=== PATIENT | male | born 1950 | race Caucasian/White ===

== ENCOUNTER 2018-08-01 13:51 | Inpatient (IN) ==
[2018-08-01 14:43] LABS: Alanine Aminotransferase 10 U/L (16-61); Albumin 3.7 G/DL (3.4-5.0); Alkaline Phosphatase 68 U/L (45-117); Aspartate Amino Transferase 36 U/L (0-37); Bilirubin,Total < 0.39 MG/DL (0.2-1.0); Blood Urea Nitrogen 35 MG/DL (7-18); Calcium 8.7 MG/DL (8.5-10.1); Glucose 121 MG/DL (74-106); Osmolality,Calculated 281.8 MOS/KG (273-304); Sodium 137 MMOL/L (136-145); Total Protein 7.5 G/DL (6.4-8.3)
[2018-08-01 14:49] LABS: Potassium 6.1 MMOL/L (3.5-5.1)
[2018-08-01 15:14] LABS: Basophils % 0.2 % (0.0-0.8); Eosinophils # 0.3 10*3/uL (0.0-0.87); Eosinophils % 2.7 % (0.00-10.9); Hematocrit 43.8 VOL% (42.0-52.0); Hemoglobin 13.5 GM/DL (14.0-18.0); Immature Granulocytes Absolute 0.71 #; Lymphocytes # 2.5 10*3/uL (1.4-4.0); Lymphocytes % 24.3 % (21.2-54.2); Mean Corpuscular HGB Conc 30.8 GM/DL (32-36); Mean Corpuscular Hemoglobin 28 PG (27-34); Mean Corpuscular Volume 89.4 FL (87-102); Mean Platelet Volume 9.2 FL (9.6-12.0); Monocytes # 0.7 10*3/uL (0.11-0.8); Neutrophils # 5.9 10*3/uL (1.4-7.4); Neutrophils % 58.8 % (38.7-73.9); Platelet Count 278 T/CUMM (130-400); Red Cell Distribution Width 14.6 % (9.3-17.3); White Blood Count 10.1 T/CUMM (4-12)
[2018-08-01] MEDS ORDERED: ALBUTEROL 2.5 MG/3 ML NEB RESP TX STA (15:28)
[2018-08-01 15:42] LABS: Band Neutrophils 1 % (0-10); Eosinophils 1 % (0-10); Lymphocytes 24 % (20-55); Segmented Neutrophils 61 % (50-85); Total Cells Counted 100
[2018-08-01 15:43] LABS: Platelet Estimate Adequate
[2018-08-01] MEDS ORDERED: DEXTROSE 50% 25 GM/50 ML VIAL IV STA (16:25)
[2018-08-01] MEDS ORDERED: INSULIN REGULAR 100 UNIT/ML IV STA (16:26)
[2018-08-01] MEDS ORDERED: DEXTROSE 50% 25 GM/50 ML SYRINGE IV ONE (17:02)
[2018-08-01] MEDS ORDERED: ONDANSETRON 4 MG/2 ML VIAL IV PRN (18:05)
[2018-08-01] MEDS ORDERED: ACETAMINOPHEN 325 MG TABLET PO PRN (18:05)
[2018-08-01] MEDS ORDERED: SODIUM POLYSTYRENE SULFATE 15 GM/60 ML BOTTLE PO STA (18:09)
[2018-08-01] MEDS ORDERED: SODIUM CHLORIDE 0.9% 1,000 ML IV SCH (18:30)
[2018-08-02 00:21] LABS: Apearance,Urine CLEAR (Clear); Bilirubin,Urine Negative (Negative); Blood, Urine Negative (Negative); Glucose,Urine (UA) Negative (Negative); Hyaline Casts,Urine 11 /LPF (0-3); Ketones,Urine 5 mg/dL (Negative); Mucus,Urine Occasional /LPF (Occasional); Nitrite,Urine Negative (Negative); Protein,Urine Negative; RBC,Urine 1 /HPF (0-4); Squamous Epithelial Cell,Urine Occasional /HPF (0-10); Urine Color Yellow (Yellow); Urine Specific Gravity 1.019 (1.001-1.035); WBC,Urine 2 /HPF (0-6)
[2018-08-02 00:22] LABS: Barbiturates Screen,Urine Negative (Negative); Benzodiazepines Screen,Urine Negative (Negative); Cannabinoid Screen,Urine Negative (Negative); Opiate Screen,Urine Negative (Negative); Phencyclidine Screen,Urine Negative (Negative)
[2018-08-02 05:45] LABS: Basophils # 0.1 10*3/uL (0.0-0.2); Basophils % 1.7 % (0.0-0.8); Eosinophils # 0.2 10*3/uL (0.0-0.87); Eosinophils % 2.8 % (0.00-10.9); Hematocrit 39.9 VOL% (42.0-52.0); Immature Granulocytes % 5.8 %; Immature Granulocytes Absolute 0.45 #; Lymphocytes # 2.1 10*3/uL (1.4-4.0); Lymphocytes % 26.3 % (21.2-54.2); Mean Corpuscular HGB Conc 30.1 GM/DL (32-36); Mean Corpuscular Hemoglobin 27 PG (27-34); Mean Corpuscular Volume 91.1 FL (87-102); Mean Platelet Volume 8.9 FL (9.6-12.0); Monocytes # 0.7 10*3/uL (0.11-0.8); Monocytes % 9.5 % (1.7-12.7); Neutrophils # 4.2 10*3/uL (1.4-7.4); Neutrophils % 53.9 % (38.7-73.9); Platelet Count 228 T/CUMM (130-400); Red Blood Count 4.38 MC/CUMM (3.8-5.5); Red Cell Distribution Width 14.6 % (9.3-17.3); White Blood Count 7.8 T/CUMM (4-12)
[2018-08-02 06:04] LABS: Calcium 8.3 MG/DL (8.5-10.1); Osmolality,Calculated 287.4 MOS/KG (273-304); Potassium 4.4 MMOL/L (3.5-5.1)
[2018-08-02 06:11] LABS: Eosinophils 4 % (0-10); Hypochromasia 1+; Lymphocytes 31 % (20-55); Platelet Estimate Adequate; Segmented Neutrophils 56 % (50-85); Total Cells Counted 100
[2018-08-02] MEDS: PANTOPRAZOLE 40 MG TABLET PO SCH (09:26)
[2018-08-03 02:53] LABS: Basophils # 0.2 10*3/uL (0.0-0.2); Basophils % 1.9 % (0.0-0.8); Eosinophils # 0.2 10*3/uL (0.0-0.87); Eosinophils % 1.6 % (0.00-10.9); Hematocrit 43.7 VOL% (42.0-52.0); Hemoglobin 13.7 GM/DL (14.0-18.0); Immature Granulocytes % 4.3 %; Immature Granulocytes Absolute 0.46 #; Lymphocytes # 3.2 10*3/uL (1.4-4.0); Mean Corpuscular HGB Conc 31.4 GM/DL (32-36); Mean Corpuscular Hemoglobin 27 PG (27-34); Mean Corpuscular Volume 87.4 FL (87-102); Monocytes # 1.1 10*3/uL (0.11-0.8); Monocytes % 10.2 % (1.7-12.7); Neutrophils # 5.6 10*3/uL (1.4-7.4); Platelet Count 285 T/CUMM (130-400); Red Cell Distribution Width 14.2 % (9.3-17.3); White Blood Count 10.8 T/CUMM (4-12)
[2018-08-03 03:26] LABS: Osmolality,Calculated 284.4 MOS/KG (273-304); Potassium 4.6 MMOL/L (3.5-5.1)
[2018-08-03] MEDS: PANTOPRAZOLE 40 MG TABLET PO SCH (09:08)
[2018-08-03] MEDS ORDERED: MEMANTINE 10 MG TABLET PO SCH (10:00)
[2018-08-03] MEDS ORDERED: METOPROLOL TARTRATE 50 MG TABLET PO SCH (10:00)
[2018-08-03] MEDS ORDERED: LITHIUM 300 MG CAPSULE PO SCH (11:00)
[2018-08-03 12:44] VITALS: BP 125/79
[2018-08-03] MEDS ORDERED: CARBIDOPA/LEVODOPA 25-100 MG TABLET PO SCH (13:00)
[2018-08-03] MEDS ORDERED: busPIRone 15 MG TABLET PO SCH (15:00)
[2018-08-03] MEDS ORDERED: DIVALPROEX 500 MG TABLET PO SCH (17:00)
[2018-08-03] MEDS ORDERED: DONEPEZIL 10 MG TABLET PO SCH (21:00)
[2018-08-03] MEDS ORDERED: traZODone 50 MG TABLET PO SCH (21:00)
[2018-08-03] MEDS ORDERED: DIVALPROEX 250 MG TABLET PO SCH (21:00)
== END 2018-08-03 16:15 | DRG 683 ==
LOC: EDSEX → EDBD → EDUNIT# → N.ED 13:51 → SUATTDRO 17:52 → N.EDINP 17:52 → N.5E 19:40
PROVIDERS: ADMIT Internal Medicine; ATTEND Internal Medicine

== ENCOUNTER 2018-09-29 10:57 | Inpatient (IN) ==
[2018-09-29] MEDS ORDERED: SODIUM CHLORIDE 0.9% 1,000 ML IV STA (11:05)
[2018-09-29 11:33] LABS: Basophils # 0.1 10*3/uL (0.0-0.2); Basophils % 0.8 % (0.0-0.8); Eosinophils # 0.1 10*3/uL (0.0-0.87); Eosinophils % 0.7 % (0.00-10.9); Hematocrit 40.8 VOL% (42.0-52.0); Hemoglobin 12.4 GM/DL (14.0-18.0); Immature Granulocytes % 4.4 %; Immature Granulocytes Absolute 0.62 #; Lymphocytes # 1.5 10*3/uL (1.4-4.0); Mean Corpuscular HGB Conc 30.4 GM/DL (32-36); Mean Corpuscular Hemoglobin 28 PG (27-34); Mean Corpuscular Volume 91.1 FL (87-102); Mean Platelet Volume 9.1 FL (9.6-12.0); Monocytes # 1.2 10*3/uL (0.11-0.8); Monocytes % 8.8 % (1.7-12.7); Neutrophils # 10.4 10*3/uL (1.4-7.4); Neutrophils % 74.3 % (38.7-73.9); Platelet Count 249 T/CUMM (130-400); Red Blood Count 4.48 MC/CUMM (3.8-5.5); Red Cell Distribution Width 13.4 % (9.3-17.3)
[2018-09-29 11:42] LABS: INR 0.9; PT Patient Result 9.9 SECS; Partial Thromboplastin Time 22.9 SECS (0-40)
[2018-09-29 11:58] LABS: Band Neutrophils 4 % (0-10); Lymphocytes 10 % (20-55); Platelet Estimate Adequate; Segmented Neutrophils 79 % (50-85); Total Cells Counted 100
[2018-09-29 11:59] LABS: Hypochromasia 1+
[2018-09-29 12:05] LABS: Alanine Aminotransferase 9 U/L (16-61); Albumin 3.5 G/DL (3.4-5.0); Alkaline Phosphatase 64 U/L (45-117); Aspartate Amino Transferase 36 U/L (0-37); Bilirubin,Total < 0.39 MG/DL (0.2-1.0); Blood Urea Nitrogen 37 MG/DL (7-18); Calcium 8.6 MG/DL (8.5-10.1); Glucose 68 MG/DL (74-106); Osmolality,Calculated 281.7 MOS/KG (273-304); Potassium 5.2 MMOL/L (3.5-5.1); Sodium 138 MMOL/L (136-145); Total Protein 7.7 G/DL (6.4-8.3)
[2018-09-29 12:44] LABS: Apearance,Urine CLEAR (Clear); Bilirubin,Urine Negative (Negative); Blood, Urine Negative (Negative); Glucose,Urine (UA) Negative (Negative); Hyaline Casts,Urine 1 /LPF (0-3); Ketones,Urine 5 mg/dL (Negative); Mucus,Urine Occasional /LPF (Occasional); Nitrite,Urine Negative (Negative); Protein,Urine Negative; RBC,Urine <1 /HPF (0-4); Urine Color Yellow (Yellow); Urine Specific Gravity 1.015 (1.001-1.035); Urine Urobilinogen < 2.0 EU/DL (0.2-1.0); WBC,Urine 1 /HPF (0-6)
[2018-09-29 12:53] LABS: Barbiturates Screen,Urine Negative (Negative); Benzodiazepines Screen,Urine Negative (Negative); Cannabinoid Screen,Urine Negative (Negative); Opiate Screen,Urine Negative (Negative); Phencyclidine Screen,Urine Negative (Negative)
[2018-09-29] MEDS ORDERED: ONDANSETRON 4 MG/2 ML VIAL IV PRN (13:43)
[2018-09-29] MEDS: cefTRIAXone 1,000 MG in SYRINGE 1 EACH IV SCH (18:02)
[2018-09-29] MEDS: DIVALPROEX 500 MG TABLET PO SCH (18:02)
[2018-09-29] MEDS: SODIUM CHLORIDE 0.9% 1,000 ML IV SCH (18:06)
[2018-09-29] MEDS: DONEPEZIL 10 MG TABLET PO SCH (20:21)
[2018-09-29] MEDS: busPIRone 15 MG TABLET PO SCH (20:21)
[2018-09-29] MEDS: CARBIDOPA/LEVODOPA 25-100 MG TABLET PO SCH (20:22)
[2018-09-29] MEDS: rOPINIRole 0.25 MG TABLET PO SCH (20:22)
[2018-09-29] MEDS: MEMANTINE 10 MG TABLET PO SCH (20:22)
[2018-09-29] MEDS: DIVALPROEX 250 MG TABLET PO SCH (20:22)
[2018-09-29] MEDS: SIMVASTATIN 20 MG TABLET PO SCH (20:22)
[2018-09-30 06:03] LABS: Alanine Aminotransferase 11 U/L (16-61); Albumin 2.9 G/DL (3.4-5.0); Alkaline Phosphatase 66 U/L (45-117); Aspartate Amino Transferase 30 U/L (0-37); Bilirubin,Direct < 0.100 MG/DL (0.0-0.20); Bilirubin,Indirect 0.3 MG/DL (0.0-1.0); Bilirubin,Total < 0.39 MG/DL (0.2-1.0)
[2018-09-30 07:12] LABS: Calcium 8.5 MG/DL (8.5-10.1); Osmolality,Calculated 276.7 MOS/KG (273-304); Potassium 4.5 MMOL/L (3.5-5.1)
[2018-09-30 07:41] LABS: Basophils # 0.1 10*3/uL (0.0-0.2); Basophils % 0.9 % (0.0-0.8); Eosinophils # 0.1 10*3/uL (0.0-0.87); Eosinophils % 0.7 % (0.00-10.9); Hematocrit 38.8 VOL% (42.0-52.0); Hemoglobin 11.8 GM/DL (14.0-18.0); Immature Granulocytes % 4.1 %; Immature Granulocytes Absolute 0.56 #; Lymphocytes # 1.7 10*3/uL (1.4-4.0); Lymphocytes % 12.2 % (21.2-54.2); Mean Corpuscular HGB Conc 30.4 GM/DL (32-36); Mean Corpuscular Hemoglobin 28 PG (27-34); Mean Corpuscular Volume 91.3 FL (87-102); Mean Platelet Volume 9.1 FL (9.6-12.0); Monocytes # 1.4 10*3/uL (0.11-0.8); Monocytes % 10.1 % (1.7-12.7); Neutrophils # 9.9 10*3/uL (1.4-7.4); Platelet Count 261 T/CUMM (130-400); Red Blood Count 4.25 MC/CUMM (3.8-5.5); Red Cell Distribution Width 13.3 % (9.3-17.3); White Blood Count 13.7 T/CUMM (4-12)
[2018-09-30 08:05] LABS: Anisocytosis 1+; Band Neutrophils 7 % (0-10); Eosinophils 1 % (0-10); Lymphocytes 11 % (20-55); Platelet Estimate Normal; Segmented Neutrophils 67 % (50-85); Total Cells Counted 100
[2018-09-30] MEDS: MEMANTINE 10 MG TABLET PO SCH ×2 (10:11→20:25)
[2018-09-30] MEDS: busPIRone 15 MG TABLET PO SCH ×3 (10:11→20:24)
[2018-09-30] MEDS: VENLAFAXINE XR 75 MG CAPSULE PO SCH (10:11)
[2018-09-30] MEDS: PANTOPRAZOLE 40 MG TABLET PO SCH (10:11)
[2018-09-30] MEDS: CHOLECALCIFEROL 1,000 UNIT TABLET PO SCH (10:11)
[2018-09-30] MEDS: rOPINIRole 0.25 MG TABLET PO SCH ×3 (10:11→20:25)
[2018-09-30] MEDS: SIMVASTATIN 20 MG TABLET PO SCH ×2 (10:11→20:25)
[2018-09-30] MEDS: SERTRALINE 50 MG TABLET PO SCH (10:11)
[2018-09-30] MEDS: CARBIDOPA/LEVODOPA 25-100 MG TABLET PO SCH ×4 (10:12→20:25)
[2018-09-30] MEDS: SODIUM CHLORIDE 0.9% 1,000 ML IV SCH (10:12)
[2018-09-30] MEDS: DIVALPROEX 500 MG TABLET PO SCH ×2 (10:12→16:51)
[2018-09-30] MEDS: cefTRIAXone 1,000 MG in SYRINGE 1 EACH IV SCH (17:30)
[2018-09-30] MEDS: DIVALPROEX 250 MG TABLET PO SCH (20:24)
[2018-09-30] MEDS: DONEPEZIL 10 MG TABLET PO SCH (20:24)
[2018-09-30] MEDS ORDERED: LITHIUM 150 MG CAPSULE PO SCH (21:00)
[2018-09-30] MEDS ORDERED: traZODone 50 MG TABLET PO SCH (22:11)
[2018-10-01] MEDS: SODIUM CHLORIDE 0.9% 1,000 ML IV SCH (04:16)
[2018-10-01] MEDS: DIVALPROEX 500 MG TABLET PO SCH (09:05)
[2018-10-01] MEDS: CARBIDOPA/LEVODOPA 25-100 MG TABLET PO SCH ×2 (09:05→13:50)
[2018-10-01] MEDS: VENLAFAXINE XR 75 MG CAPSULE PO SCH (09:05)
[2018-10-01] MEDS: SIMVASTATIN 20 MG TABLET PO SCH (09:05)
[2018-10-01] MEDS: MEMANTINE 10 MG TABLET PO SCH (09:05)
[2018-10-01] MEDS: CHOLECALCIFEROL 1,000 UNIT TABLET PO SCH (09:05)
[2018-10-01] MEDS: busPIRone 15 MG TABLET PO SCH ×2 (09:06→16:07)
[2018-10-01] MEDS: SERTRALINE 50 MG TABLET PO SCH (09:06)
[2018-10-01] MEDS: rOPINIRole 0.25 MG TABLET PO SCH ×2 (09:06→16:14)
[2018-10-01] MEDS: PANTOPRAZOLE 40 MG TABLET PO SCH (09:06)
[2018-10-01 12:16] VITALS: BP 153/71
== END 2018-10-01 15:48 | disposition home health service (06) | DRG 918 ==
LOC: EDUNIT# → EDBD → N.ED 10:57 → N.EDINP 12:23 → N.4E 15:47
PROVIDERS: ADMIT Internal Medicine; ATTEND Internal Medicine

== ENCOUNTER 2019-04-26 10:31 | Observation (INO) ==
[2019-04-26 11:04] LABS: Basophils # 0.1 10*3/uL (0.0-0.2); Basophils % 0.9 % (0.0-0.8); Eosinophils # 0.2 10*3/uL (0.0-0.87); Eosinophils % 1.7 % (0.00-10.9); Hematocrit 38.7 VOL% (42.0-52.0); Hemoglobin 12.5 GM/DL (14.0-18.0); Immature Granulocytes % 1.2 %; Immature Granulocytes Absolute 0.11 #; Lymphocytes # 2.2 10*3/uL (1.4-4.0); Lymphocytes % 25.1 % (21.2-54.2); Mean Corpuscular HGB Conc 32.3 GM/DL (32-36); Mean Platelet Volume 9.4 FL (9.6-12.0); Neutrophils % 62.1 % (38.7-73.9); Platelet Count 221 T/CUMM (130-400); Red Blood Count 4.45 MC/CUMM (3.8-5.5); Red Cell Distribution Width 14.4 % (9.3-17.3); White Blood Count 8.9 T/CUMM (4-12)
[2019-04-26 11:09] LABS: INR 0.9; Partial Thromboplastin Time < 21.0 SECS (20.8-36.0)
[2019-04-26 11:40] LABS: Albumin 3.3 G/DL (3.4-5.0); Bilirubin,Total 0.4 MG/DL (0.2-1.0); Calcium 12.8 MG/DL (8.5-10.1); Osmolality,Calculated 298.8 MOS/KG (273-304)
[2019-04-26 12:00] LABS: Apearance,Urine CLOUDY (Clear); Bacteria,Urine Occasional /HPF (Few); Bilirubin,Urine Negative (Negative); Blood, Urine Negative (Negative); Calcium Oxalate Crystals,Urine Occasional /HPF (Few); Glucose,Urine (UA) Negative (Negative); Hyaline Casts,Urine 3 /LPF (0-3); Ketones,Urine Negative (Negative); Mucus,Urine Occasional /LPF (Occasional); Nitrite,Urine Negative (Negative); Protein,Urine Negative; RBC,Urine 9 /HPF (0-4); Urine Color Yellow (Yellow); Urine Specific Gravity 1.012 (1.001-1.035); Urine Urobilinogen < 2.0 EU/DL (0.2-1.0); WBC,Urine 240 /HPF (0-6)
[2019-04-26 12:04] LABS: Barbiturates Screen,Urine Negative (Negative); Benzodiazepines Screen,Urine Negative (Negative); Cannabinoid Screen,Urine Negative (Negative); Opiate Screen,Urine Negative (Negative); Phencyclidine Screen,Urine Negative (Negative)
[2019-04-26] MEDS ORDERED: cefTRIAXone 1,000 MG in SODIUM CHLORIDE 0.9% 100 ML IV STA (13:08)
[2019-04-26] MEDS ORDERED: PROMETHAZINE 25 MG/1 ML VIAL IM PRN (13:19)
[2019-04-26] MEDS ORDERED: ONDANSETRON 4 MG/2 ML VIAL IV PRN (13:19)
[2019-04-26] MEDS ORDERED: ACETAMINOPHEN 325 MG TABLET PO PRN (13:19)
[2019-04-26] MEDS ORDERED: SILDENAFIL 50 MG PO PRN (13:22)
[2019-04-26] MEDS ORDERED: CALCIUM CARBONATE CHEW 500 MG TABLET PO PRN (13:22)
[2019-04-26] MEDS ORDERED: cefTRIAXone 1,000 MG in SYRINGE 1 EACH IV SCH (15:00)
[2019-04-26] MEDS: rOPINIRole 0.25 MG TABLET PO SCH ×2 (15:37→21:05)
[2019-04-26] MEDS: GABAPENTIN 300 MG CAPSULE PO SCH ×2 (15:37→21:05)
[2019-04-26] MEDS: SODIUM CHLORIDE 0.9% 1,000 ML IV SCH (15:37)
[2019-04-26] MEDS ORDERED: CARBIDOPA/LEVODOPA 25-100 MG TABLET PO SCH ×2 (17:00→20:00)
[2019-04-26] MEDS: DIVALPROEX 500 MG TABLET PO SCH (17:05)
[2019-04-26] MEDS: CARBIDOPA/LEVODOPA 25-100 MG TABLET PO SCH (17:07)
[2019-04-26 17:39] LABS: Vitamin B12 463 PG/ML (211-911)
[2019-04-26] MEDS ORDERED: SIMVASTATIN 10 MG TABLET PO SCH (21:00)
[2019-04-26] MEDS ORDERED: DIVALPROEX 250 MG TABLET PO SCH (21:00)
[2019-04-27] MEDS: SODIUM CHLORIDE 0.9% 1,000 ML IV SCH (01:10)
[2019-04-27 05:11] LABS: Basophils # 0.1 10*3/uL (0.0-0.2); Eosinophils # 0.3 10*3/uL (0.0-0.87); Eosinophils % 4.3 % (0.00-10.9); Hematocrit 37.3 VOL% (42.0-52.0); Hemoglobin 11.6 GM/DL (14.0-18.0); Immature Granulocytes Absolute 0.07 #; Lymphocytes # 2.4 10*3/uL (1.4-4.0); Mean Corpuscular HGB Conc 31.1 GM/DL (32-36); Mean Corpuscular Volume 88.6 FL (87-102); Mean Platelet Volume 9.3 FL (9.6-12.0); Monocytes % 9.3 % (1.7-12.7); Neutrophils % 49.4 % (38.7-73.9); Platelet Count 195 T/CUMM (130-400); Red Blood Count 4.21 MC/CUMM (3.8-5.5); Red Cell Distribution Width 14.2 % (9.3-17.3)
[2019-04-27 05:41] LABS: Calcium 10.6 MG/DL (8.5-10.1); Osmolality,Calculated 303.4 MOS/KG (273-304)
[2019-04-27] MEDS ORDERED: LACTATED RINGERS 1,000 ML IV ONE (07:48)
[2019-04-27] MEDS ORDERED: [UNRECOGNIZED DRUG - OTHER] PO SCH (09:00)
[2019-04-27] MEDS ORDERED: VENLAFAXINE XR 75 MG CAPSULE PO SCH (09:00)
[2019-04-27] MEDS ORDERED: PANTOPRAZOLE 40 MG TABLET PO SCH ×2 (09:00)
[2019-04-27] MEDS ORDERED: CHOLECALCIFEROL 1,000 UNIT TABLET PO SCH (09:00)
[2019-04-27] MEDS ORDERED: SERTRALINE 50 MG TABLET PO SCH (09:00)
[2019-04-27] MEDS ORDERED: amLODIPine 5 MG TABLET PO SCH (09:00)
[2019-04-27] MEDS: GABAPENTIN 300 MG CAPSULE PO SCH (09:07)
[2019-04-27] MEDS: DIVALPROEX 500 MG TABLET PO SCH (09:07)
[2019-04-27] MEDS: rOPINIRole 0.25 MG TABLET PO SCH (09:07)
[2019-04-27] MEDS: CARBIDOPA/LEVODOPA 25-100 MG TABLET PO SCH ×2 (09:08→11:22)
[2019-04-27 13:22] VITALS: BP 155/93
== END 2019-04-27 14:38 | disposition home health service (06) ==
LOC: EDUNIT# → EDBD → N.EDINP 10:31 → N.ED 10:31 → N.5E 14:15
PROVIDERS: ADMIT Internal Medicine; ATTEND Internal Medicine

== ENCOUNTER 2019-11-18 12:51 | Inpatient (IN) ==
[2019-11-18] MEDS ORDERED: KETOROLAC 30 MG/1 ML VIAL IV STA (13:12)
[2019-11-18] MEDS ORDERED: CLINDAMYCIN INJ 900 MG in PREMIX 1 EACH IV STA (13:12)
[2019-11-18] MEDS ORDERED: methylPREDNISolone SOD SUC 125 MG/2 ML VIAL IV STA (13:12)
[2019-11-18] MEDS ORDERED: ONDANSETRON 4 MG/2 ML VIAL IV STA (13:12)
[2019-11-18 14:14] LABS: Basophils # 0.1 10*3/uL (0.0-0.2); Basophils % 0.5 % (0.0-0.8); Eosinophils % 0.4 % (0.00-10.9); Hematocrit 45.4 VOL% (42.0-52.0); Hemoglobin 14.7 GM/DL (14.0-18.0); Immature Granulocytes % 0.8 %; Immature Granulocytes Absolute 0.08 #; Lymphocytes # 1.3 10*3/uL (1.4-4.0); Lymphocytes % 13.1 % (21.2-54.2); Mean Corpuscular HGB Conc 32.4 GM/DL (32-36); Mean Corpuscular Volume 87.6 FL (87-102); Monocytes % 8.6 % (1.7-12.7); Neutrophils % 76.6 % (38.7-73.9); Platelet Count 248 T/CUMM (130-400); Red Blood Count 5.18 MC/CUMM (3.8-5.5); Red Cell Distribution Width 13.4 % (9.3-17.3); White Blood Count 9.7 T/CUMM (4-12)
[2019-11-18 14:25] LABS: Partial Thromboplastin Time 28.9 SECS (23.9-33.8)
[2019-11-18 14:41] LABS: Ferritin 182.2 ng/ml (26-388)
[2019-11-18 14:52] LABS: Alanine Aminotransferase 89 U/L (16-61); Albumin 3.2 G/DL (3.4-5.0); Alkaline Phosphatase 81 U/L (45-117); Aspartate Amino Transferase 179 U/L (0-37); Blood Urea Nitrogen 41 MG/DL (7-18); CKMB % 0.3 %; Calcium 9.4 MG/DL (8.5-10.1); Estimated Glom Filtration Rate 58 ML/MIN; Glucose 94 MG/DL (74-106); Osmolality,Calculated 284.7 MOS/KG (273-304); Total Protein 7.8 G/DL (6.4-8.3); Troponin I < 0.015 NG/ML (0.00-0.045)
[2019-11-18] MEDS ORDERED: SODIUM CHLORIDE 0.9% 1,000 ML IV STA (14:55)
[2019-11-18] MEDS ORDERED: ONDANSETRON 4 MG/2 ML VIAL IV PRN (15:56)
[2019-11-18] MEDS ORDERED: hydrALAZINE 20 MG/1 ML VIAL IV PRN (15:56)
[2019-11-18] MEDS ORDERED: LACTULOSE 20 GM/30 ML UDCUP PO PRN (15:56)
[2019-11-18] MEDS ORDERED: ACETAMINOPHEN 325 MG TABLET PO PRN (15:56)
[2019-11-18] MEDS ORDERED: traMADol 50 MG TABLET PO PRN (16:26)
[2019-11-18 17:16] LABS: Risk Ratio 5.98; Thyroid Stimulating Hormone 0.729 uIU/ml (0.358-3.74); VLDL CHOLESTEROL 55.2 MG/DL
[2019-11-18] MEDS: cefTRIAXone 1,000 MG in SYRINGE 1 EACH IV SCH (17:32)
[2019-11-18] MEDS: SODIUM CHLORIDE 0.9% 1,000 ML IV SCH (17:43)
[2019-11-18] MEDS: CARBIDOPA/LEVODOPA 25-100 MG TABLET PO SCH ×2 (18:01→21:42)
[2019-11-18] MEDS: DIVALPROEX 500 MG TABLET PO SCH (18:01)
[2019-11-18] MEDS: ALBUTEROL 2.5 MG/3 ML NEB RESP TX SCH ×2 (19:20→23:55)
[2019-11-18] MEDS: DOCUSATE SODIUM 100 MG CAPSULE PO SCH (21:35)
[2019-11-18] MEDS: DONEPEZIL 10 MG TABLET PO SCH (21:41)
[2019-11-18] MEDS: DIVALPROEX 250 MG TABLET PO SCH (21:41)
[2019-11-18] MEDS: busPIRone 15 MG TABLET PO SCH (21:41)
[2019-11-18] MEDS: traZODone 50 MG TABLET PO SCH (21:42)
[2019-11-18] MEDS: MIRTAZAPINE 15 MG TABLET PO SCH (21:42)
[2019-11-18] MEDS: rOPINIRole 0.25 MG TABLET PO SCH (21:42)
[2019-11-18] MEDS: ENOXAPARIN 40 MG/0.4 ML SYRINGE SUBCUT SCH (21:42)
[2019-11-18] MEDS: MEMANTINE 10 MG TABLET PO SCH (21:42)
[2019-11-19] MEDS: SODIUM CHLORIDE 0.9% 1,000 ML IV SCH ×3 (01:44→16:46)
[2019-11-19] MEDS: ALBUTEROL 2.5 MG/3 ML NEB RESP TX SCH ×6 (03:04→23:52)
[2019-11-19] MEDS: CARBIDOPA/LEVODOPA 25-100 MG TABLET PO SCH ×5 (05:52→21:10)
[2019-11-19 06:10] LABS: Basophils % 0.2 % (0.0-0.8); Hematocrit 36.7 VOL% (42.0-52.0); Hemoglobin 11.9 GM/DL (14.0-18.0); Immature Granulocytes % 0.9 %; Immature Granulocytes Absolute 0.07 #; Lymphocytes % 11.9 % (21.2-54.2); Mean Corpuscular HGB Conc 32.4 GM/DL (32-36); Mean Corpuscular Volume 87.2 FL (87-102); Mean Platelet Volume 9.4 FL (9.6-12.0); Platelet Count 216 T/CUMM (130-400); Red Blood Count 4.21 MC/CUMM (3.8-5.5); Red Cell Distribution Width 13.3 % (9.3-17.3); White Blood Count 8.1 T/CUMM (4-12)
[2019-11-19 06:26] LABS: Albumin 2.5 G/DL (3.4-5.0); Bilirubin,Total 0.4 MG/DL (0.2-1.0); Osmolality,Calculated 292.7 MOS/KG (273-304); Total Protein 6.3 G/DL (6.4-8.3)
[2019-11-19] MEDS: VENLAFAXINE XR 75 MG CAPSULE PO SCH (09:55)
[2019-11-19] MEDS: TAMSULOSIN 0.4 MG CAPSULE PO SCH (09:55)
[2019-11-19] MEDS: DOCUSATE SODIUM 100 MG CAPSULE PO SCH ×2 (09:55→21:09)
[2019-11-19] MEDS: rOPINIRole 0.25 MG TABLET PO SCH ×2 (09:56→21:10)
[2019-11-19] MEDS: SERTRALINE 50 MG TABLET PO SCH (09:56)
[2019-11-19] MEDS: MEMANTINE 10 MG TABLET PO SCH ×2 (09:56→21:10)
[2019-11-19] MEDS: amLODIPine 5 MG TABLET PO SCH (09:56)
[2019-11-19] MEDS: DIVALPROEX 500 MG TABLET PO SCH ×2 (09:56→16:48)
[2019-11-19] MEDS: busPIRone 15 MG TABLET PO SCH ×3 (09:56→21:09)
[2019-11-19 13:58] LABS: Apearance,Urine CLEAR (Clear); Bilirubin,Urine Negative (Negative); Blood, Urine Negative (Negative); Glucose,Urine (UA) Negative (Negative); Ketones,Urine Negative (Negative); Nitrite,Urine Negative (Negative); Protein,Urine Negative; RBC,Urine <1 /HPF (0-4); Urine Color Yellow (Yellow); Urine Specific Gravity 1.016 (1.001-1.035); Urine Urobilinogen < 2.0 EU/DL (0.2-1.0); WBC,Urine 1 /HPF (0-6)
[2019-11-19 15:09] LABS: Barbiturates Screen,Urine Negative (Negative); Benzodiazepines Screen,Urine Negative (Negative); Cannabinoid Screen,Urine Negative (Negative); Opiate Screen,Urine Negative (Negative); Phencyclidine Screen,Urine Negative (Negative)
[2019-11-19] MEDS: cefTRIAXone 1,000 MG in SYRINGE 1 EACH IV SCH (16:48)
[2019-11-19] MEDS: traZODone 50 MG TABLET PO SCH (21:09)
[2019-11-19] MEDS: DONEPEZIL 10 MG TABLET PO SCH (21:09)
[2019-11-19] MEDS: ENOXAPARIN 40 MG/0.4 ML SYRINGE SUBCUT SCH (21:09)
[2019-11-19] MEDS: DIVALPROEX 250 MG TABLET PO SCH (21:09)
[2019-11-19] MEDS: MIRTAZAPINE 15 MG TABLET PO SCH (21:10)
[2019-11-20] MEDS ORDERED: CALCIUM CARBONATE CHEW 500 MG TABLET PO PRN (01:32)
[2019-11-20] MEDS: ALBUTEROL 2.5 MG/3 ML NEB RESP TX SCH ×6 (03:00→23:24)
[2019-11-20] MEDS: ALUMINUM/MAGNES/SIMETH MAX STR 30 ML UDCUP PO PRN ×3 (04:33→18:45)
[2019-11-20] MEDS: CARBIDOPA/LEVODOPA 25-100 MG TABLET PO SCH ×5 (06:03→22:00)
[2019-11-20 06:30] LABS: Albumin 2.2 G/DL (3.4-5.0); Bilirubin,Total 0.4 MG/DL (0.2-1.0); Calcium 8.3 MG/DL (8.5-10.1); Osmolality,Calculated 282.7 MOS/KG (273-304); Total Protein 6.8 G/DL (6.4-8.3)
[2019-11-20] MEDS: SODIUM CHLORIDE 0.9% 1,000 ML IV SCH ×3 (07:02→22:00)
[2019-11-20] MEDS ORDERED: ALUM/MAG/SIMETH/LIDO VISC 1:1 30 ML BOTTLE PO ONE (07:55)
[2019-11-20] MEDS: DIVALPROEX 500 MG TABLET PO SCH ×2 (07:58→17:08)
[2019-11-20] MEDS: TAMSULOSIN 0.4 MG CAPSULE PO SCH (08:02)
[2019-11-20] MEDS: busPIRone 15 MG TABLET PO SCH ×3 (08:02→21:59)
[2019-11-20] MEDS: MEMANTINE 10 MG TABLET PO SCH ×2 (08:02→22:00)
[2019-11-20] MEDS: DOCUSATE SODIUM 100 MG CAPSULE PO SCH ×2 (08:02→21:59)
[2019-11-20] MEDS: SERTRALINE 50 MG TABLET PO SCH (08:02)
[2019-11-20] MEDS: amLODIPine 5 MG TABLET PO SCH (08:02)
[2019-11-20] MEDS: VENLAFAXINE XR 75 MG CAPSULE PO SCH (08:02)
[2019-11-20] MEDS: PANTOPRAZOLE 40 MG TABLET PO SCH ×2 (08:09→21:59)
[2019-11-20] MEDS: rOPINIRole 0.25 MG TABLET PO SCH ×2 (08:09→21:59)
[2019-11-20 08:53] LABS: Basophils # 0.1 10*3/uL (0.0-0.2); Basophils % 0.4 % (0.0-0.8); Eosinophils % 0.1 % (0.00-10.9); Hematocrit 43.4 VOL% (42.0-52.0); Hemoglobin 13.7 GM/DL (14.0-18.0); Immature Granulocytes % 1.3 %; Immature Granulocytes Absolute 0.22 #; Lymphocytes # 2.4 10*3/uL (1.4-4.0); Lymphocytes % 14.7 % (21.2-54.2); Mean Corpuscular HGB Conc 31.6 GM/DL (32-36); Mean Corpuscular Volume 89.3 FL (87-102); Mean Platelet Volume 10.5 FL (9.6-12.0); Monocytes % 7.3 % (1.7-12.7); Neutrophils % 76.2 % (38.7-73.9); Platelet Count 220 T/CUMM (130-400); Red Blood Count 4.86 MC/CUMM (3.8-5.5); Red Cell Distribution Width 13.6 % (9.3-17.3); White Blood Count 16.5 T/CUMM (4-12)
[2019-11-20 08:56] LABS: Troponin I 0.017 NG/ML (0.00-0.045)
[2019-11-20] MEDS ORDERED: METOPROLOL TARTRATE 5 MG/5 ML VIAL IV ONE (14:00)
[2019-11-20] MEDS: cefTRIAXone 1,000 MG in SYRINGE 1 EACH IV SCH (15:22)
[2019-11-20] MEDS: carvediloL 12.5 MG TABLET PO SCH (17:09)
[2019-11-20] MEDS: ENOXAPARIN 40 MG/0.4 ML SYRINGE SUBCUT SCH (21:59)
[2019-11-20] MEDS: traZODone 50 MG TABLET PO SCH (21:59)
[2019-11-20] MEDS: MIRTAZAPINE 15 MG TABLET PO SCH (21:59)
[2019-11-20] MEDS: DONEPEZIL 10 MG TABLET PO SCH (22:00)
[2019-11-20] MEDS: DIVALPROEX 250 MG TABLET PO SCH (22:01)
[2019-11-21] MEDS: ALBUTEROL 2.5 MG/3 ML NEB RESP TX SCH ×5 (03:04→20:43)
[2019-11-21 06:20] LABS: Basophils # 0.1 10*3/uL (0.0-0.2); Basophils % 0.7 % (0.0-0.8); Eosinophils % 0.1 % (0.00-10.9); Hemoglobin 12.8 GM/DL (14.0-18.0); Immature Granulocytes % 1.8 %; Immature Granulocytes Absolute 0.19 #; Lymphocytes # 2.2 10*3/uL (1.4-4.0); Lymphocytes % 21.2 % (21.2-54.2); Mean Corpuscular HGB Conc 34.6 GM/DL (32-36); Mean Corpuscular Volume 84.5 FL (87-102); Mean Platelet Volume 9.1 FL (9.6-12.0); Monocytes % 8.3 % (1.7-12.7); Neutrophils % 67.9 % (38.7-73.9); Platelet Count 231 T/CUMM (130-400); Red Blood Count 4.38 MC/CUMM (3.8-5.5); Red Cell Distribution Width 13.6 % (9.3-17.3); White Blood Count 10.5 T/CUMM (4-12)
[2019-11-21 06:43] LABS: Calcium 8.7 MG/DL (8.5-10.1); Osmolality,Calculated 280.5 MOS/KG (273-304)
[2019-11-21 06:49] LABS: Albumin 2.5 G/DL (3.4-5.0); Bilirubin,Total 0.7 MG/DL (0.2-1.0); Calcium 8.6 MG/DL (8.5-10.1); Osmolality,Calculated 279.5 MOS/KG (273-304); Total Protein 6.6 G/DL (6.4-8.3)
[2019-11-21] MEDS: CARBIDOPA/LEVODOPA 25-100 MG TABLET PO SCH ×5 (06:52→22:49)
[2019-11-21] MEDS: SODIUM CHLORIDE 0.9% 1,000 ML IV SCH ×3 (07:21→18:40)
[2019-11-21] MEDS: DIVALPROEX 500 MG TABLET PO SCH ×2 (09:47→18:31)
[2019-11-21] MEDS: busPIRone 15 MG TABLET PO SCH ×3 (09:47→20:30)
[2019-11-21] MEDS: DOCUSATE SODIUM 100 MG CAPSULE PO SCH ×2 (09:47→20:30)
[2019-11-21] MEDS: carvediloL 12.5 MG TABLET PO SCH ×2 (09:47→18:31)
[2019-11-21] MEDS: amLODIPine 5 MG TABLET PO SCH (09:48)
[2019-11-21] MEDS: MEMANTINE 10 MG TABLET PO SCH ×2 (09:48→20:31)
[2019-11-21] MEDS: TAMSULOSIN 0.4 MG CAPSULE PO SCH (09:48)
[2019-11-21] MEDS: VENLAFAXINE XR 75 MG CAPSULE PO SCH (09:48)
[2019-11-21] MEDS: PANTOPRAZOLE 40 MG TABLET PO SCH ×2 (09:48→20:31)
[2019-11-21] MEDS: SERTRALINE 50 MG TABLET PO SCH (09:49)
[2019-11-21] MEDS: rOPINIRole 0.25 MG TABLET PO SCH ×2 (09:49→20:31)
[2019-11-21] MEDS: cefTRIAXone 1,000 MG in SYRINGE 1 EACH IV SCH (16:46)
[2019-11-21] MEDS: DIVALPROEX 250 MG TABLET PO SCH (20:30)
[2019-11-21] MEDS: ENOXAPARIN 40 MG/0.4 ML SYRINGE SUBCUT SCH (20:30)
[2019-11-21] MEDS: DONEPEZIL 10 MG TABLET PO SCH (20:31)
[2019-11-21] MEDS: MIRTAZAPINE 15 MG TABLET PO SCH (20:31)
[2019-11-21] MEDS: traZODone 50 MG TABLET PO SCH (20:31)
[2019-11-22] MEDS: ALBUTEROL 2.5 MG/3 ML NEB RESP TX SCH ×3 (00:34→11:14)
[2019-11-22] MEDS: CARBIDOPA/LEVODOPA 25-100 MG TABLET PO SCH ×3 (05:26→14:45)
[2019-11-22] MEDS: SODIUM CHLORIDE 0.9% 1,000 ML IV SCH (08:00)
[2019-11-22] MEDS: carvediloL 12.5 MG TABLET PO SCH (08:51)
[2019-11-22] MEDS: busPIRone 15 MG TABLET PO SCH (08:51)
[2019-11-22] MEDS: DIVALPROEX 500 MG TABLET PO SCH (08:51)
[2019-11-22] MEDS: DOCUSATE SODIUM 100 MG CAPSULE PO SCH (08:52)
[2019-11-22] MEDS: VENLAFAXINE XR 75 MG CAPSULE PO SCH (08:52)
[2019-11-22] MEDS: PANTOPRAZOLE 40 MG TABLET PO SCH (08:53)
[2019-11-22] MEDS: MEMANTINE 10 MG TABLET PO SCH (08:53)
[2019-11-22] MEDS: TAMSULOSIN 0.4 MG CAPSULE PO SCH (08:53)
[2019-11-22] MEDS: rOPINIRole 0.25 MG TABLET PO SCH (08:53)
[2019-11-22] MEDS: amLODIPine 5 MG TABLET PO SCH (08:53)
[2019-11-22] MEDS: SERTRALINE 50 MG TABLET PO SCH (08:54)
[2019-11-22 11:37] VITALS: BP 162/86
== END 2019-11-22 14:45 | disposition swing bed (61) | DRG 565 ==
LOC: EDUNIT# → N.ED 12:51 → N.EDINP 15:56 → SUATTDRO 15:56 → N.3E 17:22
PROVIDERS: ADMIT Internal Medicine; ATTEND Internal Medicine

== ENCOUNTER 2021-11-26 09:35 | Inpatient (IN) ==
[2021-11-26] MEDS ORDERED: SODIUM CHLORIDE 0.9% 1,000 ML IV STA (10:08)
[2021-11-26 10:16] LABS: Basophils % 0.3 % (0.0-0.8); Eosinophils % 0.3 % (0.00-10.9); Hematocrit 36.4 VOL% (42.0-52.0); Hemoglobin 11.6 GM/DL (14.0-18.0); Immature Granulocytes % 0.9 %; Immature Granulocytes Absolute 0.14 #; Lymphocytes % 13.4 % (21.2-54.2); Mean Corpuscular HGB Conc 31.9 GM/DL (32-36); Mean Corpuscular Volume 85.4 FL (87-102); Mean Platelet Volume 9.5 FL (9.6-12.0); Monocytes # 1.6 10*3/uL (0.11-0.8); Monocytes % 10.9 % (1.7-12.7); Neutrophils % 74.2 % (38.7-73.9); Platelet Count 174 T/CUMM (130-400); Red Blood Count 4.26 MC/CUMM (3.8-5.5); Red Cell Distribution Width 14.6 % (9.3-17.3); White Blood Count 15.1 T/CUMM (4-12)
[2021-11-26 10:39] LABS: Alanine Aminotransferase < 6 U/L (16-61); Albumin 2.2 G/DL (3.4-5.0); Alkaline Phosphatase 53 U/L (45-117); Aspartate Amino Transferase 19 U/L (0-37); Bilirubin,Total < 0.39 MG/DL (0.20-1.00); Blood Urea Nitrogen 68 MG/DL (7-18); Calcium 8.5 MG/DL (8.5-10.1); Carbon Dioxide 24 MMOL/L (21-32); Chloride 112 MMOL/L (98-107); Glucose 138 MG/DL (74-106); Osmolality,Calculated 307.8 MOS/KG (273-304); Sodium 144 MMOL/L (136-145); Total Protein 6.9 G/DL (6.4-8.2)
[2021-11-26 11:46] LABS: Bacteria,Urine Occasional /HPF (Few); Mucus,Urine Occasional /LPF (Occasional); RBC,Urine 2 /HPF (0-4); Urine Appearance Clear (Clear); Urine Color Yellow (Yellow)
[2021-11-26 11:47] LABS: Bilirubin,Urine Negative (Negative); Blood, Urine Trace mg/dL (Negative); Glucose,Urine (UA) Negative (Negative); Ketones,Urine Negative (Negative); Nitrite,Urine Negative (Negative); Protein,Urine 100 mg/dL (Negative); Urine Specific Gravity 1.015 (1.001-1.035); Urine Urobilinogen 0.2 eU/dL (<2.0); Urine pH 5.5 (4.5-8.0)
[2021-11-26] MEDS ORDERED: cefTRIAXone 1,000 MG in SODIUM CHLORIDE 0.9% 100 ML IV STA (12:08)
[2021-11-26] MEDS ORDERED: ACETAMINOPHEN 325 MG TABLET PO PRN (13:13)
[2021-11-26] MEDS ORDERED: DEXTROSE 50% 25 GM/50 ML VIAL IV PRN (13:13)
[2021-11-26] MEDS ORDERED: GLUCAGON 1 MG VIAL IM PRN ×2 (13:13)
[2021-11-26] MEDS ORDERED: ONDANSETRON 4 MG/2 ML VIAL IV PRN (13:13)
[2021-11-26 13:45] LABS: Thyroid Stimulating Hormone 1.73 uIU/ml (0.358-3.74)
[2021-11-26] MEDS ORDERED: DEXTROSE 10% 250 ML BAG IV PRN (13:54)
[2021-11-26] MEDS: ALBUTEROL/IPRATROPIUM 3 ML NEB RESP TX SCH ×3 (14:30→22:10)
[2021-11-26] MEDS ORDERED: LACTULOSE 20 GM/30 ML UDCUP PO PRN (15:12)
[2021-11-26] MEDS: LACTATED RINGERS 1,000 ML IV SCH (16:25)
[2021-11-26] MEDS: AZITHROMYCIN INJ 500 MG in SODIUM CHLORIDE 0.9% 250 ML IV SCH (16:26)
[2021-11-26] MEDS: ENOXAPARIN 30 MG/0.3 ML SYRINGE SUBCUT SCH (16:27)
[2021-11-26] MEDS: busPIRone 15 MG TABLET PO SCH ×2 (16:28→21:11)
[2021-11-26] MEDS: INSULIN LISPRO 100 UNIT/ML SUBCUT SCH ×2 (17:53→21:16)
[2021-11-26] MEDS: carvediloL 25 MG TABLET PO SCH (18:08)
[2021-11-26] MEDS: DIVALPROEX 500 MG TABLET PO SCH (18:08)
[2021-11-26] MEDS: CARBIDOPA/LEVODOPA 25-100 MG TABLET PO SCH ×2 (18:08→21:11)
[2021-11-26] MEDS: PRAMIPEXOLE 0.25 MG TABLET PO SCH (21:11)
[2021-11-26] MEDS: DIVALPROEX 250 MG TABLET PO SCH (21:11)
[2021-11-26] MEDS: MEMANTINE 10 MG TABLET PO SCH (21:11)
[2021-11-26] MEDS: MIRTAZAPINE 15 MG TABLET PO SCH (21:11)
[2021-11-26] MEDS: MELATONIN 3 MG TABLET PO SCH (21:11)
[2021-11-26] MEDS: EZETIMIBE 10 MG TABLET PO SCH (21:11)
[2021-11-27] MEDS: LACTATED RINGERS 1,000 ML IV SCH ×3 (00:16→21:17)
[2021-11-27] MEDS: ALBUTEROL/IPRATROPIUM 3 ML NEB RESP TX SCH ×6 (02:00→23:51)
[2021-11-27] MEDS: CARBIDOPA/LEVODOPA 25-100 MG TABLET PO SCH ×5 (05:48→21:20)
[2021-11-27 06:46] LABS: Basophils % 0.4 % (0.0-0.8); Hematocrit 33.7 VOL% (42.0-52.0); Hemoglobin 10.7 GM/DL (14.0-18.0); Immature Granulocytes % 1.5 %; Immature Granulocytes Absolute 0.16 #; Lymphocytes # 1.4 10*3/uL (1.4-4.0); Lymphocytes % 13.3 % (21.2-54.2); Mean Corpuscular HGB Conc 31.8 GM/DL (32-36); Mean Corpuscular Volume 85.8 FL (87-102); Mean Platelet Volume 9.9 FL (9.6-12.0); Monocytes # 0.8 10*3/uL (0.11-0.8); Monocytes % 7.4 % (1.7-12.7); Neutrophils % 77.4 % (38.7-73.9); Platelet Count 178 T/CUMM (130-400); Red Blood Count 3.93 MC/CUMM (3.8-5.5); Red Cell Distribution Width 14.6 % (9.3-17.3); White Blood Count 10.4 T/CUMM (4-12)
[2021-11-27 07:25] LABS: Alanine Aminotransferase < 9 U/L (16-61); Albumin 1.9 G/DL (3.4-5.0); Alkaline Phosphatase 53 U/L (45-117); Aspartate Amino Transferase 43 U/L (0-37); Bilirubin,Total < 0.39 MG/DL (0.20-1.00); Blood Urea Nitrogen 49 MG/DL (7-18); Calcium 8.3 MG/DL (8.5-10.1); Carbon Dioxide 20 MMOL/L (21-32); Chloride 114 MMOL/L (98-107); Cholesterol 114 MG/DL (50-200); Glucose 191 MG/DL (74-106); HDL Cholesterol 16 MG/DL (40-60); Osmolality,Calculated 303.8 MOS/KG (273-304); Potassium 3.4 MMOL/L (3.5-5.1); Risk Ratio 7.13; Sodium 144 MMOL/L (136-145); Total Protein 6.2 G/DL (6.4-8.2); Triglycerides 253 MG/DL (2-150); VLDL Cholesterol 50.6 MG/DL
[2021-11-27] MEDS ORDERED: POTASSIUM CHLORIDE 20 MEQ TABLET PO ONE (09:34)
[2021-11-27] MEDS: INSULIN LISPRO 100 UNIT/ML SUBCUT SCH ×4 (10:03→20:08)
[2021-11-27] MEDS: busPIRone 15 MG TABLET PO SCH ×3 (10:08→21:20)
[2021-11-27] MEDS: SIMVASTATIN 10 MG TABLET PO SCH (10:08)
[2021-11-27] MEDS: PANTOPRAZOLE 40 MG TABLET PO SCH (10:09)
[2021-11-27] MEDS: ASPIRIN EC 81 MG TABLET PO SCH (10:09)
[2021-11-27] MEDS: VENLAFAXINE XR 75 MG CAPSULE PO SCH (10:09)
[2021-11-27] MEDS: TAMSULOSIN 0.4 MG CAPSULE PO SCH (10:09)
[2021-11-27] MEDS: MEMANTINE 10 MG TABLET PO SCH ×2 (10:09→21:19)
[2021-11-27] MEDS: DIVALPROEX 500 MG TABLET PO SCH ×2 (10:09→17:06)
[2021-11-27] MEDS: ISTRADEFYLLINE 20 MG PO SCH (10:15)
[2021-11-27] MEDS: NON-FORMULARY MEDICATION (Cariprazine [Vraylar] 1.5 mg Capsule) PO SCH (10:15)
[2021-11-27] MEDS: carvediloL 25 MG TABLET PO SCH ×2 (10:16→17:06)
[2021-11-27] MEDS: cefTRIAXone 1,000 MG in SODIUM CHLORIDE 0.9% 100 ML IV SCH (14:40)
[2021-11-27] MEDS: ENOXAPARIN 30 MG/0.3 ML SYRINGE SUBCUT SCH (14:41)
[2021-11-27] MEDS: AZITHROMYCIN INJ 500 MG in SODIUM CHLORIDE 0.9% 250 ML IV SCH (15:21)
[2021-11-27] MEDS: KETOCONAZOLE 2% CREAM 30 GM TUBE TOP PRN (17:10)
[2021-11-27] MEDS: PRAMIPEXOLE 0.25 MG TABLET PO SCH (21:20)
[2021-11-27] MEDS: DIVALPROEX 250 MG TABLET PO SCH (21:20)
[2021-11-27] MEDS: MIRTAZAPINE 15 MG TABLET PO SCH (21:20)
[2021-11-27] MEDS: MELATONIN 3 MG TABLET PO SCH (21:20)
[2021-11-27] MEDS: EZETIMIBE 10 MG TABLET PO SCH (21:20)
[2021-11-28] MEDS: ALBUTEROL/IPRATROPIUM 3 ML NEB RESP TX SCH ×6 (03:00→23:50)
[2021-11-28 05:07] LABS: Basophils # 0.1 10*3/uL (0.0-0.2); Basophils % 0.9 % (0.0-0.8); Eosinophils % 0.2 % (0.00-10.9); Hematocrit 33.5 VOL% (42.0-52.0); Hemoglobin 10.5 GM/DL (14.0-18.0); Immature Granulocytes % 3.7 %; Immature Granulocytes Absolute 0.33 #; Lymphocytes # 1.5 10*3/uL (1.4-4.0); Lymphocytes % 16.2 % (21.2-54.2); Mean Corpuscular HGB Conc 31.3 GM/DL (32-36); Mean Platelet Volume 9.8 FL (9.6-12.0); Monocytes # 0.8 10*3/uL (0.11-0.8); Monocytes % 9.2 % (1.7-12.7); Neutrophils % 69.8 % (38.7-73.9); Platelet Count 216 T/CUMM (130-400); Red Blood Count 3.94 MC/CUMM (3.8-5.5); Red Cell Distribution Width 14.5 % (9.3-17.3)
[2021-11-28 05:24] LABS: Calcium 8.6 MG/DL (8.5-10.1); Potassium 3.8 MMOL/L (3.5-5.1)
[2021-11-28] MEDS: CARBIDOPA/LEVODOPA 25-100 MG TABLET PO SCH ×5 (06:04→21:57)
[2021-11-28] MEDS: LACTATED RINGERS 1,000 ML IV SCH ×3 (06:12→21:47)
[2021-11-28] MEDS: SIMVASTATIN 10 MG TABLET PO SCH (09:31)
[2021-11-28] MEDS: INSULIN LISPRO 100 UNIT/ML SUBCUT SCH ×4 (09:31→21:56)
[2021-11-28] MEDS: TAMSULOSIN 0.4 MG CAPSULE PO SCH (09:32)
[2021-11-28] MEDS: PANTOPRAZOLE 40 MG TABLET PO SCH (09:34)
[2021-11-28] MEDS: DIVALPROEX 500 MG TABLET PO SCH ×2 (09:35→17:32)
[2021-11-28] MEDS: busPIRone 15 MG TABLET PO SCH ×3 (09:36→21:13)
[2021-11-28] MEDS: MEMANTINE 10 MG TABLET PO SCH ×2 (09:36→21:13)
[2021-11-28] MEDS: ASPIRIN EC 81 MG TABLET PO SCH (09:37)
[2021-11-28] MEDS: carvediloL 25 MG TABLET PO SCH ×2 (09:37→17:32)
[2021-11-28] MEDS: NON-FORMULARY MEDICATION (Cariprazine [Vraylar] 1.5 mg Capsule) PO SCH (09:38)
[2021-11-28] MEDS: ISTRADEFYLLINE 20 MG PO SCH (09:38)
[2021-11-28] MEDS: VENLAFAXINE XR 75 MG CAPSULE PO SCH (11:04)
[2021-11-28] MEDS: ENOXAPARIN 30 MG/0.3 ML SYRINGE SUBCUT SCH (13:25)
[2021-11-28] MEDS: cefTRIAXone 1,000 MG in SODIUM CHLORIDE 0.9% 100 ML IV SCH (13:27)
[2021-11-28] MEDS: AZITHROMYCIN INJ 500 MG in SODIUM CHLORIDE 0.9% 250 ML IV SCH (15:58)
[2021-11-28] MEDS ORDERED: LOPERAMIDE 2 MG CAPSULE PO ONE (16:56)
[2021-11-28] MEDS: KETOCONAZOLE 2% CREAM 30 GM TUBE TOP PRN (17:33)
[2021-11-28] MEDS ORDERED: DONEPEZIL 10 MG TABLET PO SCH (21:00)
[2021-11-28] MEDS: MELATONIN 3 MG TABLET PO SCH (21:12)
[2021-11-28] MEDS: DIVALPROEX 250 MG TABLET PO SCH (21:13)
[2021-11-28] MEDS: MIRTAZAPINE 15 MG TABLET PO SCH (21:13)
[2021-11-28] MEDS: PRAMIPEXOLE 0.25 MG TABLET PO SCH (21:14)
[2021-11-28] MEDS: EZETIMIBE 10 MG TABLET PO SCH (21:14)
[2021-11-29] MEDS: ALBUTEROL/IPRATROPIUM 3 ML NEB RESP TX SCH ×3 (03:01→10:33)
[2021-11-29 05:13] LABS: Basophils % 0.4 % (0.0-0.8); Eosinophils # 0.1 10*3/uL (0.0-0.87); Eosinophils % 0.9 % (0.00-10.9); Hemoglobin 10.7 GM/DL (14.0-18.0); Immature Granulocytes % 8.3 %; Immature Granulocytes Absolute 0.77 #; Lymphocytes # 1.7 10*3/uL (1.4-4.0); Lymphocytes % 18.5 % (21.2-54.2); Mean Corpuscular HGB Conc 32.4 GM/DL (32-36); Mean Corpuscular Volume 84.2 FL (87-102); Mean Platelet Volume 9.8 FL (9.6-12.0); Monocytes # 1.1 10*3/uL (0.11-0.8); Monocytes % 11.5 % (1.7-12.7); Neutrophils % 60.4 % (38.7-73.9); Platelet Count 216 T/CUMM (130-400); Red Blood Count 3.92 MC/CUMM (3.8-5.5); Red Cell Distribution Width 14.5 % (9.3-17.3); White Blood Count 9.3 T/CUMM (4-12)
[2021-11-29 05:29] LABS: Calcium 8.8 MG/DL (8.5-10.1)
[2021-11-29 05:34] LABS: Band Neutrophils 2 % (0-10); Eosinophils 2 % (0-10); Hypochromia Slight; Lymphocytes 20 % (20-55); Microcytosis Slight; Nucleated Red Blood Cells 1 (0-5); Platelet Estimate Adequate; Total Cells Counted 100
[2021-11-29] MEDS: CARBIDOPA/LEVODOPA 25-100 MG TABLET PO SCH ×2 (06:03→09:53)
[2021-11-29] MEDS: DIVALPROEX 500 MG TABLET PO SCH (08:00)
[2021-11-29] MEDS: INSULIN LISPRO 100 UNIT/ML SUBCUT SCH ×2 (08:30→12:31)
[2021-11-29] MEDS ORDERED: LOSARTAN 25 MG TABLET PO SCH (09:03)
[2021-11-29] MEDS: carvediloL 25 MG TABLET PO SCH (09:43)
[2021-11-29] MEDS: ASPIRIN EC 81 MG TABLET PO SCH (09:44)
[2021-11-29] MEDS: busPIRone 15 MG TABLET PO SCH (09:44)
[2021-11-29] MEDS: VENLAFAXINE XR 75 MG CAPSULE PO SCH (09:45)
[2021-11-29] MEDS: PANTOPRAZOLE 40 MG TABLET PO SCH (09:45)
[2021-11-29] MEDS: SIMVASTATIN 10 MG TABLET PO SCH (09:45)
[2021-11-29] MEDS: TAMSULOSIN 0.4 MG CAPSULE PO SCH (09:48)
[2021-11-29] MEDS: LACTATED RINGERS 1,000 ML IV SCH (09:51)
[2021-11-29] MEDS: MEMANTINE 10 MG TABLET PO SCH (09:52)
[2021-11-29] MEDS: ISTRADEFYLLINE 20 MG PO SCH (10:04)
[2021-11-29] MEDS: NON-FORMULARY MEDICATION (Cariprazine [Vraylar] 1.5 mg Capsule) PO SCH (10:04)
[2021-11-29 12:39] VITALS: BP 157/78
== END 2021-11-29 13:00 | DRG 196 ==
LOC: N.ED 09:35 → N.EDINP 13:13 → SUATTDRO 13:13 → N.5E 15:32
PROVIDERS: ADMIT Internal Medicine; ATTEND Internal Medicine